=== PATIENT | male | born 1940 | race Caucasian/White ===

== ENCOUNTER 2018-06-11 08:56 | Day surgery (SDC) | payer OTHER ==
[2018-05-21 09:13] VITALS: BMI 22.0
[2018-05-28 09:37] VITALS: BMI 22.0
--- NOTE | 2018-05-28 09:58 | PAT Medication Instructions ---
Service Date May 28, 2018. Current Home Medication List Aspirin (Aspirin Ec), 81 MG PO QAM Atorvastatin (Lipitor), 20 MG PO QAM Ibuprofen (Advil), 400 MG PO QD PRN for Pain Levothyroxine Sodium (Levothyroxine Sodium), 1 TAB PO QAM Lisinopril (Zestril), 5 MG PO QAM Metoprolol Succinate (Toprol Xl), 25 MG PO QAM Oxycodone Hcl (Oxycodone Hcl), 1 TAB PO TID PRN for Pain Spironolactone (Aldactone), 25 MG PO QAM Zolpidem Tartrate (Zolpidem Tartrate), 1 TAB PO HS PRN for Sleep Medication Instructions For Your Scheduled Surgery -Check with your surgeon and support staff for instructions for: Aspirin (Aspirin Ec), 81 MG PO QAM -Check with your surgeon for instructions for: Ibuprofen (Advil), 400 MG PO QD PRN for Pain - Hold the following medications the morning of surgery: Lisinopril (Zestril), 5 MG PO QAM Spironolactone (Aldactone), 25 MG PO QAM - Take the following medications the morning of surgery with a sip of water: Atorvastatin (Lipitor), 20 MG PO QAM Levothyroxine Sodium (Levothyroxine Sodium), 1 TAB PO QAM Metoprolol Succinate (Toprol Xl), 25 MG PO QAM Oxycodone Hcl (Oxycodone Hcl), 1 TAB PO TID PRN for Pain (if needed, may be taken up to four hours before surgery) - Take the following medications as scheduled the night before surgery: Oxycodone Hcl (Oxycodone Hcl), 1 TAB PO TID PRN for Pain (if needed) Zolpidem Tartrate (Zolpidem Tartrate), 1 TAB PO HS PRN for Sleep (if needed) If you have any questions please call us at [phone] or [phone] or [phone]
--- NOTE | 2018-05-28 10:51 | DIAGNOSTIC IMAGING REPORT ---
CHEST 2 VIEWS ROUTINE HISTORY: 77 years-old Male PAT preoperative exam. No acute pulmonary complaints. History of lung cancer with bony metastasis. COMPARISON: None available TECHNIQUE: PA and lateral views of the chest FINDINGS: Cardiac silhouette is normal in size. Prior median sternotomy. Surgical clips project over the left heart border and anterior mediastinum. The inferior most sternotomy wire is fractured. Mild pleural thickening/biapical pleural-parenchymal scarring. Lungs are mildly hyperinflated without pneumothorax, pleural effusion, focal airspace consolidation or overt pulmonary edema. Degenerative changes of the shoulders and spine. Bones appear mildly demineralized. IMPRESSION: Hyperinflation without acute process. The above report was generated using voice recognition software. It may contain grammatical, syntax or spelling errors. Electronically signed by: Italo Villegas M.D. 05/28/2018 10:50 AM Dictated Date/Time: 05/28/2018 10:48 AM
[2018-05-28 10:56] LABS: BASO % 0.9 %; BASO ABS # 0.06 K/uL (0-0.2); EOS % 1.9 %; EOS ABS # 0.12 K/uL (0-0.5); HEMATOCRIT 38.1 % (42-52); HEMOGLOBIN 12.6 g/dL (14.0-18.0); IG# 0.01 K/uL (0.00-0.02); LYMPH % 17.6 %; LYMPH ABS # 1.14 K/uL (1.2-3.4); MEAN CELL VOLUME 92.7 fL (80-100); MEAN CORPUSCULAR HEMOGLOBIN 30.7 pg (25-34); MEAN CORPUSCULAR HGB CONC 33.1 g/dl (32-36); MEAN PLATELET VOLUME 12.7 fL (7.4-10.4); MONO % 12.4 %; NEUT ABS # 4.33 K/uL (1.4-6.5); PLATELET COUNT 181 K/uL (130-400); RED CELL DISTRIBUTION WIDTH CV 14.2 % (11.5-14.5); WHITE BLOOD COUNT 6.46 K/uL (4.8-10.8)
[2018-05-28 11:07] LABS: BLOOD UREA NITROGEN 16 mg/dl (7-18); CALCIUM 9.2 mg/dl (8.5-10.1); CARBON DIOXIDE 29 mmol/L (21-32); CREATININE 0.88 mg/dl (0.60-1.40); GLUCOSE 97 mg/dl (70-99); POTASSIUM 4.1 mmol/L (3.5-5.1); SODIUM 137 mmol/L (136-145)
[~2018-06-11] VITALS: Ht 172.7 cm; Wt 66.8 kg
[~2018-06-11 08:56] MED LIST: ASPI81TA28 PO; ATOR-22 PO; CIPROFLOXACIN / D5W 400 MG IV SCH; IBUP-1050 PO; LACTATED RINGER'S 1000ML 1,000 ML IV SCH; LEVO75TA5 PO; LISI-729 PO; METO25TA4 PO; OXYC-164 PO; SPIR25TA PO; ZOLP5TAB6 PO
[2018-06-11] MEDS ORDERED: CIPROFLOXACIN 400MG / 200ML D5W ONE (09:12)
[2018-06-11 09:25] VITALS: BP 138/73; PULSE 94; TEMP 37; O2SAT 97; Ht 172.7 cm; Wt 66.8 kg
--- NOTE | 2018-06-11 10:04 | History & Physical Bridge Note ---
H&P Re-Evaluation Bridge Note: I have examined the patient, reviewed the History & Physical and in the interval since the performance of the History & Physical I have noted the following changes of clinical significance: No changes noted
[2018-06-11] MEDS ORDERED: LABETALOL HCL IV 5 MG/ML 20ML IV PRN (10:30)
[2018-06-11] MEDS ORDERED: MEPERIDINE HCL 25 MG/ML CARP IV PRN (10:30)
[2018-06-11] MEDS ORDERED: EpHEDrine SULFATE INJ 50 MG/ML AMP IV PRN (10:30)
[2018-06-11] MEDS ORDERED: ATROPINE SULFATE 0.1 MG/ML 5ML SYR IV PRN (10:30)
[2018-06-11] MEDS ORDERED: ONDANSETRON INJ 2 MG/ML 2 ML VIAL IV PRN (10:30)
[2018-06-11] MEDS ORDERED: Cysto-Conray II 17.2% 250ML BOTTLE ONE (11:14)
[2018-06-11] MEDS ORDERED: FENTANYL CITRATE INJ 50 MCG/1 ML 2 ML VIAL ONE (11:20)
[2018-06-11] MEDS ORDERED: LIDOCAINE HCL 2% 2 ML VIAL (20MG/ML) ONE (11:20)
[2018-06-11] MEDS ORDERED: MIDAZOLAM HCL 1 MG/ML 2ML VIAL ONE (11:20)
[2018-06-11] MEDS ORDERED: PROPOFOL IV EMULSION 10 MG/ML 20 ML VIAL ONE (11:20)
[2018-06-11] MEDS ORDERED: BOPS PR (11:35)
[2018-06-11] MEDS ORDERED: CIPR-255 PO (11:35)
[2018-06-11] MEDS ORDERED: PHEN-775 PO (11:35)
--- NOTE | 2018-06-11 11:36 | Discharge Instructions ---
Discharge Instructions Date of Service Jun 11, 2018. Admission Reason for Admission: Left Renal Stone Discharge Discharge Diagnosis / Problem: L renal stone s/p uscope, laser litho, stent Discharge Goals Goal(s): Decrease discomfort, Improve disease control, Therapeutic intervention Activity Recommendations Activity Limitations: as noted below Lifting Limitations: no more than 25 pounds, gradually increase as tolerated Exercise/Sports Limitations: rest today, gradually increase as tolerated May Resume Sexual Activity: after follow-up appointment Shower/Bathe: no limitations Driving or Machine Use: resume 1 day after discharge . Instructions / Follow-Up Instructions / Follow-Up Follow-up in office as scheduled with [facility] before visit for possible stent removal Current Hospital Diet Patient's current hospital diet: Discharge Diet Recommended Diet: Regular Diet (good fluid intake) Procedures Procedures Performed: Cystoscopy, left retrograde pyelography, left flexible ureteroscopy with laser lithotripsy, basket stone extraction and ureteral stent placement Pending Studies Studies pending at discharge: yes List of pending studies: Stone analysis Medical Emergencies . Who to Call and When: Medical Emergencies: If at any time you feel your situation is an emergency, please call 911 immediately. . Non-Emergent Contact Non-Emergency issues call your: Urologist Call Non-Emergent contact if: you have a fever, temperature is above 101, your pain is not controlled, your pain is worsening, your pain is unusual for you, your pain is concerning you, you have any medication questions . . "Provider Documentation" section prepared by Chaka Daniels. . [place] Drug Monitoring Program Search Results: patient reviewed within database, see additional documentation (regular narcotic Rx - B&O provided for postop analgesia)
[2018-06-11] MEDS ORDERED: SUCCINYLCHOLINE 100MG/5ML SYR IV ONE (12:17)
[2018-06-11] MEDS ORDERED: DEXAMETHASONE SOD INJ 4 MG/ML VIAL ONE (12:17)
[2018-06-11] MEDS ORDERED: ONDANSETRON INJ 2 MG/ML 2 ML VIAL ONE (12:17)
--- NOTE | 2018-06-11 12:46 | [facility] Operative Report ---
Operative Report Operative Date Jun 11, 2018. Pre-Operative Diagnosis Left Renal Stones, >2 cm in size Post-Operative Diagnosis same Procedure(s) Performed Cystoscopy, Flexible Ureteroscopy, Retrograde pyelography,Laser Lithotripsy;Basket Stone Extraction, Stent Placement, Left Surgeon Dr. Daniel Daniels [employer] Flow Sales Leader Surgeon(s) none Estimated Blood Loss 5ml Findings Stone fragmented into small pieces, good stent position at the end of the case. Specimens a, Left renal stone for chemical analysis Drains Left-sided 6 Serbian multilength stent Anesthesia Type General Complication(s) none Disposition no Recovery Room / PACU Indications 77-year-old male with intermittent left flank pain found to have a large stone on imaging. He is here today for endoscopic management of his disease. Please see H&P for further details. Intravenous ciprofloxacin provided for antibiotic coverage and SCDs used for DVT prophylaxis. Description of Procedure Patient was properly identified and brought into the operative suite after identification of appropriate consent in the chart. General anesthesia with endotracheal intubation was performed due to difficulties with placement of a laryngeal mask and due to scarring from the patient's previous ENT surgeries. Patient was prepped and draped in standard fashion for this procedure and full timeout procedure was followed. 22 Serbian rigid cystoscope was passed into the bladder under direct visualization demonstrating a blanched prostate gland with a somewhat rigid bladder neck consistent with the patient's previous brachytherapy of the prostate. Grade 2 trabeculation of the bladder was noted with some radiation varicosities being present at the level of the bladder neck. No intravesical tumors or papillary lesions were appreciated. No suspicious mucosa noted and no bladder stones. Left-sided ureteral orifice was identified and cannulated using an open-ended catheter. Retrograde pyelography was performed demonstrating a normal ureter and collecting system. Patient was noted to have a large radiopaque stone at the level of the left renal pelvis and this was present as a filling defect on filling with contrast. Sensor tip wire was advanced to the level of the upper pole of the kidney kept until the end of the case as a safety wire. A second Amplatz working wire was advanced without difficulties or resistance followed by a 12/14 46 cm ureteral access sheath. This was able to be advanced through a somewhat stenotic ureter up to the level of the ureteropelvic junction without resistance or difficulties. This was followed by a flexible fiberoptic ureteroscope and a large renal pelvis stone was identified consistent with the patient's previous imaging. No other stone material or lesions were noted within the renal pelvis. A 270 m fiber was used on standard and then on dusting settings to fracture the stone into small pieces. Thankfully, the stone was very soft and fractured quite easily. Medical Records Administrator piece of stone was sent for chemical analysis after grasping with an open-ended basket. Dusting settings were used to ensure a lack of any pieces of stone of any significant size. Repeat pyeloscopy was repeated and patient was found to be free of any significant injuries to the urothelium of the kidney or any large residual stones. Complete exit ureteroscopy was performed including removal of the sheath to identify and visualize the ureter beneath it. This was noted to have some superficial mucosal tears likely due to the tightness of the ureter but no injuries through the muscularis. Cystoscope was backloaded over the safety wire and a 6 Serbian multilength stent was placed without difficulties with redundant coils both at the level of the renal pelvis and within the bladder under direct visualization. Bladder was drained and cystoscope was removed. Anesthesia was reversed and patient was transferred to the recovery room in stable condition. Follow-up instructions: Patient will be discharged home today with a prescription for ciprofloxacin, Pyridium and belladonna and opium suppositories. Narcotic pain medication is not provided seen the patient's regular and plentiful prescriptions from outside physicians. Outpatient appointment with [facility] for cystoscopy and stent removal is confirmed. Patient is instructed to contact our service should he note any fevers, chills, nausea, vomiting or other difficulties in the postoperative period. I attest to the content of the Intraoperative Record and any orders documented therein. Any exceptions are noted below.
--- NOTE | 2018-06-11 12:50 | DIAGNOSTIC IMAGING REPORT ---
[facility]GR[facility] INCLUDES [facility] CLINICAL HISTORY: LEFT LASER LITHOTRIPSY AND STENT PLACEMENT TECHNIQUE: Image intensifier. 1 minute 10 seconds flow time. 7 images COMPARISON STUDY: None FINDINGS: L laser lithotripsy followed by stent placement IMPRESSION: Left laser lithotripsy followed by stent placement. The above report was generated using voice recognition software. It may contain grammatical, syntax or spelling errors. Electronically signed by: Rick Napoles M.D. 06/11/2018 12:48 PM Dictated Date/Time: 06/11/2018 12:48 PM
[2018-06-11] MEDS ORDERED: PHENAZOPYRIDINE HCL 200 MG TAB PO PRN (13:00)
[2018-06-11] MEDS ORDERED: OXYCODONE/ACETAMINOPHEN 5-325 TAB PO PRN ×2 (13:00)
[2018-06-11] MEDS: FENTANYL CITRATE INJ 50 MCG/1 ML 2 ML VIAL IV PRN ×2 (13:20→13:25)
--- NOTE | 2018-06-11 13:35 | Anesthesia Progress Nt - [facility] ---
Anesthesia Post Op Note Date & Time Jun 11, 2018 at 13:35 Vital Signs Pain Intensity: 7 Vital Signs Past 12 Hours Date Time Temp Pulse Resp B/P (MAP) Pulse Ox O2 Delivery O2 Flow Rate FiO2 06/11/18 13:25 70 18 144/76 96 Room Air 06/11/18 13:15 73 19 139/70 97 Room Air 06/11/18 13:05 63 19 153/70 100 Oxymask 10 06/11/18 12:55 72 19 139/85 100 Oxymask 10 06/11/18 12:52 36.2 70 18 152/75 98 Oxymask 10 06/11/18 09:25 37 94 20 138/73 (94) 97 Room Air Notes Mental Status: alert / awake / arousable, participated in evaluation Pt Amnestic to Procedure: Yes Nausea / Vomiting: adequately controlled Pain: adequately controlled Airway Patency, RR, SpO2: stable & adequate BP & HR: stable & adequate Hydration State: stable & adequate Anesthetic Complications: no major complications apparent
[2018-06-11 13:45] VITALS: BP 148/66; PULSE 76; TEMP 36.7; O2SAT 93
[2018-06-11 14:15] VITALS: BP 145/64; PULSE 74; O2SAT 96
[2018-06-11 14:45] VITALS: BP 126/59; PULSE 80; TEMP 36.7; O2SAT 95
== END 2018-06-11 15:03 | disposition home or self-care (01) ==
LOC: C.ACU 08:56
PROVIDERS: ATTEND Urology
DX: N20.0 Calculus of kidney (principal); I25.2 Old myocardial infarction; I11.0 Hypertensive heart disease with heart failure; I50.20 Unspecified systolic (congestive) heart failure; J44.9 Chronic obstructive pulmonary disease, unspecified; Z86.73 Personal history of transient ischemic attack (TIA), and cerebral infarction without residual deficits; Z95.1 Presence of aortocoronary bypass graft; Z79.899 Other long term (current) drug therapy; Z85.46 Personal history of malignant neoplasm of prostate; Z85.118 Personal history of other malignant neoplasm of bronchus and lung; Z79.82 Long term (current) use of aspirin